=== PATIENT | male | born 1990 | race Caucasian/White ===

== ENCOUNTER 2020-07-20 15:10 | Emergency (ER) | payer MEDICAID ==
[~2020-07-20] VITALS: Ht 177.8 cm; Wt 77.3 kg
[2020-07-20 15:13] VITALS: BP 137/89
[2020-07-20] MEDS ORDERED: FLUORESCEIN SODIUM 1 MG STRIP ONE (15:33)
[2020-07-20] MEDS ORDERED: FLUORESCEIN SODIUM 1 MG STRIP OU ONE (15:45)
[2020-07-20] MEDS ORDERED: PROPARACAINE HCL 0.5% 15 ML OPHTHALMIC SOLUTION OU ONE (15:45)
[2020-07-20] MEDS ORDERED: ERYTHROMYCIN 0.5% 3.5 GM TUBE OPHTHALMIC OINTMENT OS ONE (16:15)
[2020-07-20] MEDS ORDERED: PERTUSS(ACELL),DIPH,TET VAC/PF 0.5 ML VIAL IM ONE (16:15)
== END 2020-07-20 16:29 | disposition home or self-care (01) ==
LOC: EMS 15:10
DX: T15.02XA Foreign body in cornea, left eye, initial encounter (principal); F12.90 Cannabis use, unspecified, uncomplicated; F17.210 Nicotine dependence, cigarettes, uncomplicated; X58.XXXA Exposure to other specified factors, initial encounter; Y93.89 Activity, other specified; Y92.89 Other specified places as the place of occurrence of the external cause; Y99.8 Other external cause status
CPT/HCPCS: 65220; 90471; 90715

== ENCOUNTER 2021-08-07 10:24 | Emergency (ER) | payer MEDICAID ==
[~2021-08-07] VITALS: Ht 170.2 cm; Wt 74.3 kg
[2021-08-07] MEDS ORDERED: FLUORESCEIN SODIUM 1 MG STRIP OS ONE (11:00)
[2021-08-07] MEDS ORDERED: POLYMYXIN B/TRIMETHOPRIM 10 ML OPHTHALMIC SOLUTION OS ONE (11:15)
[2021-08-07] MEDS ORDERED: PROPARACAINE HCL 0.5% 15 ML OPHTHALMIC SOLUTION OS ONE (11:15)
[2021-08-07] MEDS ORDERED: POLY10DR3 OS (11:56)
[2021-08-07 11:57] VITALS: BP 138/71
== END 2021-08-07 12:30 | disposition home or self-care (01) ==
LOC: EMS 10:24 → EDUNIT# 10:24 → EMS 12:30
DX: S05.02XA Injury of conjunctiva and corneal abrasion without foreign body, left eye, initial encounter (principal); X58.XXXA Exposure to other specified factors, initial encounter; Y93.89 Activity, other specified; Y92.89 Other specified places as the place of occurrence of the external cause; Y99.8 Other external cause status
CPT/HCPCS: 99283